=== PATIENT | female | born 1945 | race Caucasian/White ===

== ENCOUNTER → 2016-11-25 | Outpatient (CLI) | payer MEDICARE, OTHER | LOC: KOH-I 11:05 | DX: R05 Cough (principal) | CPT/HCPCS: 71020 ==

== ENCOUNTER → 2016-12-20 | Outpatient (CLI) | payer MEDICARE, OTHER | LOC: HEART 5 08:49 | DX: R05 Cough (principal); Z72.0 Tobacco use | CPT/HCPCS: 94060; 94729 ==

== ENCOUNTER → 2017-03-12 | Outpatient (CLI) | payer MEDICARE, OTHER | LOC: MAMO 09:47 | DX: Z12.31 Encounter for screening mammogram for malignant neoplasm of breast (principal); F17.200 Nicotine dependence, unspecified, uncomplicated | CPT/HCPCS: G0202 ==

== ENCOUNTER → 2021-04-25 | Outpatient (CLI) | payer MEDICARE, OTHER | LOC: EXRD 11:03 | DX: N28.1 Cyst of kidney, acquired (principal); N28.9 Disorder of kidney and ureter, unspecified | CPT/HCPCS: 76775 ==

== ENCOUNTER → 2021-10-31 | Outpatient (CLI) | payer MEDICARE, OTHER | LOC: CT 13:33 | DX: I71.4 Abdominal aortic aneurysm, without rupture (principal); K55.1 Chronic vascular disorders of intestine | CPT/HCPCS: 36415; 82565; Q9967 ==

== ENCOUNTER 2022-01-02 10:50 | Emergency (ER) | payer MEDICARE, OTHER ==
[2022-01-02 11:36] LABS: HEMOGLOBIN 15.7 gm/dl (12.3-15.3); RED BLOOD COUNT 5.15 M/UL (4.00-5.10); WHITE BLOOD COUNT 7.4 K/UL (4.5-11.0)
[2022-01-02] MEDS ORDERED: LASIX20 MG PO (15:28)
== END 2022-01-02 15:37 | disposition home or self-care (01) ==
LOC: ER1 10:50
PROVIDERS: Physician Assistant
DX: I11.0 Hypertensive heart disease with heart failure (principal); I50.9 Heart failure, unspecified; E11.9 Type 2 diabetes mellitus without complications; J44.9 Chronic obstructive pulmonary disease, unspecified; F17.210 Nicotine dependence, cigarettes, uncomplicated
CPT/HCPCS: 36600; 71045; 80053; 82550; 82553; 82803; 83880; 84484; 85025; 93005; 96374; 96376; 99285; J1940

== ENCOUNTER → 2022-02-20 | Outpatient (CLI) | payer MEDICARE, OTHER ==
[~2022-02-20] MED LIST: LASIX20 MG PO
== END ==
LOC: ECHO 02-14 08:30
DX: I50.9 Heart failure, unspecified (principal); I27.20 Pulmonary hypertension, unspecified; I08.1 Rheumatic disorders of both mitral and tricuspid valves
CPT/HCPCS: ECHO; 93306

== ENCOUNTER → 2022-04-04 | Outpatient (CLI) | payer MEDICARE, OTHER | LOC: HEART A 11:30 | DX: R09.02 Hypoxemia (principal) | CPT/HCPCS: 94060; 94729 ==